=== PATIENT | female | born 1985 ===

== ENCOUNTER 2016-07-23 13:29 | Emergency (ER) | payer MEDICAID ==
[2016-07-23 13:46] VITALS: BP 124/78; PULSE 84; RESP 18; TEMP 98.3; O2SAT 100
--- NOTE | 2016-07-23 14:20 | ED PDOC ---
Lower Extremity Pain/Injury Time Seen by Provider: 07/23/16 13:47 Chief Complaint (Nursing): Lower Extremity Problem/Injury Chief Complaint (Provider): Left Foot and Leg Numbness/Tingling History Per: Patient History/Exam Limitations: no limitations Onset/Duration Of Symptoms: Days Current Symptoms Are (Timing): Still Present Additional Complaint(s): 14:05 Chelsey Jacobo is a 31 year old female that presents to the ED with a chief complaint left foot and leg numbness and tingling, that she describes as "pins and needles." Patient states that her numbness and tingling originally began on the outer, left-sided portion of her left foot, but that it has since radiated up her left leg. She also reports a bump on the top of her left foot, and denies any pain to the bottom of her foot. Past Medical History Reviewed: Nursing Documentation, Vital Signs Vital Signs: Last Vital Signs Temp 98.3 F 07/23/16 13:43 Pulse 84 07/23/16 13:43 Resp 18 07/23/16 13:43 BP 124/78 07/23/16 13:43 Pulse Ox 100 07/23/16 13:43 - Medical History PMH: No Chronic Diseases - Family History Family History: States: No Known Family Hx - Living Arrangements Living Arrangements: With Family - Social History Current smoker - smoking cessation education provided: No Alcohol: None Drugs: Denies - Home Medications Home Medications: Ambulatory Orders Medication Instructions Recorded Ibuprofen [Motrin] 600 mg PO Q6 #20 tab 07/23/16 - Allergies Allergies/Adverse Reactions: Allergies Allergy/AdvReac Type Severity Reaction Status Date / Time Sulfa (Sulfonamide Allergy RASH Verified 07/23/16 13:43 Antibiotics) Review of Systems ROS Statement: Except As Marked, All Systems Reviewed And Found Negative Musculoskeletal: Positive for: Leg Pain (left leg numbness and tingling), Foot Pain (left foot numbness and tingling) Physical Exam - Reviewed Nursing Documentation Reviewed: Yes Vital Signs Reviewed: Yes - Physical Exam Appears: Positive for: Non-toxic, No Acute Distress Head Exam: Positive for: ATRAUMATIC, NORMOCEPHALIC Skin: Positive for: Normal Color, Warm Pulses-Dorsalis Pedis (L): 2+ Pulses-Dorsalis Pedis (R): 2+ Pulses-Post. Tibialis (L): 2+ Pulses-Post. Tibialis (R): 2+ Extremity: Positive for: Normal ROM (full ROM left foot), Capillary Refill (<2 seconds) Neurologic/Psych: Positive for: Alert, Oriented, Other (sensation intact in foot ) - ECG O2 Sat by Pulse Oximetry: 100 (RA) Pulse Ox Interpretation: Normal Medical Decision Making Medical Decision Makin:15 Impression: Left Foot Tinging/Numbness due to Possible Cyst Initial Plan: * X-Ray Left Foot * Ibuprofen 600 mg PO * Reevaluation * * XR: NAd, as read by SINA * MILAGROS therapy advised and Pt referred to podiatry clinic Scribe Attestation: Documented by Eleanor Haro, acting as a scribe for Mary Beltrán PA-C. Provider Scribe Attestation: All medical record entries made by the Scribe were at my direction and personally dictated by me. I have reviewed the chart and agree that the record accurately reflects my personal performance of the history, physical exam, medical decision making, and the department course for this patient. I have also personally directed, reviewed, and agree with the discharge instructions and disposition. Disposition - Clinical Impression Clinical Impression: Foot pain, left - Patient ED Disposition Is Patient to be Admitted: No - Disposition Referrals: Podiatry Clinic [Outside] Disposition: Routine/Home Disposition Time: 18:40 Condition: STABLE Prescriptions: Ibuprofen [Motrin] 600 mg PO Q6 #20 tab Instructions: Arthralgia (ED) Forms: [facility] ED School/Work Excuse - POA Present On Arrival: None
--- NOTE | 2016-07-23 16:00 | RAD ---
HISTORY: pain, atruamtic COMPARISON: No prior FINDINGS: BONES: Normal. No fracture. JOINTS: Normal. No osteoarthritis. SOFT TISSUE: Normal. OTHER FINDINGS: None . IMPRESSION: Normal Bone Xray.
== END 2016-07-23 16:33 | disposition home or self-care (01) ==
LOC: H.ER 13:29
DX: M79.672 Pain in left foot (principal)

== ENCOUNTER 2017-10-05 21:24 | Emergency (ER) | payer MEDICAID ==
[2017-10-05 21:33] VITALS: PULSE 88
--- NOTE | 2017-10-05 21:55 | ED PDOC ---
HPI: Psych/Substance Abuse Time Seen by Provider: 10/05/17 21:37 Chief Complaint (Nursing): Psychiatric Evaluation Chief Complaint (Provider): Crisis eval History Per: Patient Additional Complaint(s): 32 yo female, brought in by EMS from work after 911 was called by Pt's boyfriend for evaluation of possible suicidal ideatios. pt reprots she was fighting with her boyfriend on the phone and out of anger she said she wanted to kill hersel. Pt denies nay homicidal or suicidal ideations, reports she just said it without thinking. pt is in therapy/meds Past Medical History Reviewed: Nursing Documentation, Vital Signs Vital Signs: Last Vital Signs Temp 98.8 F 10/05/17 21:27 Pulse 88 10/05/17 21:27 Resp 18 10/05/17 21:27 BP 130/89 10/05/17 21:27 Pulse Ox 100 10/05/17 21:27 - Medical History PMH: Schizophrenia - Family History Family History: States: Unknown Family Hx - Social History Current smoker - smoking cessation education provided: No Alcohol: Social Drugs: Denies - Home Medications Home Medications: Ambulatory Orders Medication Instructions Recorded Ibuprofen [Motrin] 600 mg PO Q6 #20 tab 07/23/16 - Allergies Allergies/Adverse Reactions: Allergies Allergy/AdvReac Type Severity Reaction Status Date / Time Sulfa (Sulfonamide Allergy RASH Verified 10/05/17 21:33 Antibiotics) Review of Systems ROS Statement: Except As Marked, All Systems Reviewed And Found Negative Physical Exam - Reviewed Nursing Documentation Reviewed: Yes Vital Signs Reviewed: Yes - Physical Exam Appears: Positive for: Well, Non-toxic, No Acute Distress Head Exam: Positive for: ATRAUMATIC, NORMAL INSPECTION, NORMOCEPHALIC Skin: Positive for: Normal Color, Warm, DRY Eye Exam: Positive for: EOMI, Normal appearance, PERRL ENT: Positive for: Normal ENT Inspection Neck: Positive for: Normal, Painless ROM Cardiovascular/Chest: Positive for: Regular Rate, Rhythm Respiratory: Positive for: CNT, Normal Breath Sounds Gastrointestinal/Abdominal: Positive for: Normal Exam, Soft Back: Positive for: Normal Inspection Extremity: Positive for: Normal ROM Neurologic/Psych: Positive for: Alert, Oriented - ECG O2 Sat by Pulse Oximetry: 100 Medical Decision Making Medical Decision Making: Pt placed on 1:1 for safety. Crisis consult obtained, see notes. Disposition - Clinical Impression Clinical Impression: Adjustment disorder - Patient ED Disposition Is Patient to be Admitted: No - Disposition Disposition: Routine/Home Disposition Time: 23:21 Condition: STABLE Instructions: Adjustment Disorder Forms: [employer] ([place]ani)
[2017-10-05 23:48] VITALS: BP 134/67; RESP 16; TEMP 98; O2SAT 98
== END 2017-10-05 23:47 | disposition home or self-care (01) ==
LOC: H.ER 21:24
DX: F43.20 Adjustment disorder, unspecified (principal); F20.9 Schizophrenia, unspecified